=== PATIENT | female | born 1930 | race Two or more races ===

== ENCOUNTER 2018-03-18 07:54 | Inpatient (IN) | payer OTHER, MEDICAID ==
[~2018-03-18] VITALS: Ht 149.9 cm; Wt 55.8 kg
[2018-03-18] VITALS (7 sets, daily range): BP systolic 92–122; BP diastolic 50–65
[2018-03-18] MEDS ORDERED: IV NS 0.9% 1,000 ML BAG IV ONE (08:00)
--- NOTE | 2018-03-18 08:07 | NUR ---
PT MAMADOU FROM HOME TO ER BED 08. PER REPORT SYNCOPAL EPISODE WHILE BEING TRANSFERED FROM BED TO THE WHEELCHAIR. HYPOTENSIVE PER EMS ARRIVAL. GOWNED AND PLACED ON MONITOR. AWAITING MD DAVILA.
--- NOTE | 2018-03-18 08:15 | NUR ---
DR LOUISE AT BEDSIDE FOR EVAL.
[2018-03-18 08:34] LABS: BASOPHILS % (AUTO) 0.3 % (0.0-2.0); HEMATOCRIT 25 % (33-45); HEMOGLOBIN 8.5 g/dL (11.5-14.8); LYMPHOCYTES # (AUTO) 0.7 /CMM (0.8-4.8); LYMPHOCYTES % (AUTO) 6.9 % (20.0-44.0); MEAN CORPUSCULAR HGB CONC 34 g/dl (31.0-36.0); MEAN CORPUSCULAR VOLUME 87 fL (82-100); MONOCYTES # (AUTO) 0.6 /CMM (0.1-1.30); MONOCYTES % (AUTO) 5.9 % (2.0-12.0); NEUTROPHILS # (AUTO) 8.4 /CMM (1.8-8.9); NEUTROPHILS % (AUTO) 86.9 % (43.0-81.0); PLATELET COUNT (AUTO) 307 /CMM (150-450); RED BLOOD CELL COUNT(AUTO) 2.89 MIL/uL (4.0-5.2); WHITE BLOOD COUNT (AUTO) 9.6 K/uL (4.3-11.0)
[2018-03-18] MEDS ORDERED: ATOR10TA PO (08:37)
[2018-03-18] MEDS ORDERED: RIVA10TA PO (08:37)
[2018-03-18] MEDS ORDERED: DILT120C87 PO (08:37)
[2018-03-18] MEDS ORDERED: POLY17PO4 PO (08:37)
[2018-03-18] MEDS ORDERED: MULT-1200 PO (08:37)
[2018-03-18] MEDS ORDERED: MULT-479 PO (08:37)
[2018-03-18] MEDS ORDERED: ESCI5TAB PO (08:37)
[2018-03-18] MEDS ORDERED: DOCU-141 PO (08:37)
[2018-03-18 08:41] LABS: OCCULT BLOOD STOOL POSITIVE (NEGATIVE)
[2018-03-18 08:58] LABS: ALANINE AMINOTRANSFERASE 20 U/L (12-78); ALBUMIN 2.2 g/dL (3.4-5.0); ALKALINE PHOSPHATASE 54 U/L (46-116); ASPARTATE AMINOTRANSFERASE 22 U/L (15-37); BILIRUBIN,DIRECT 0.1 mg/dL (0.0-0.2); BILIRUBIN,TOTAL 0.4 mg/dL (0.2-1.0); CALCIUM, SERUM 8.9 mg/dL (8.5-10.1); CARBON DIOXIDE 31 mmol/L (21-32); CHLORIDE 106 mmol/L (98-107); CREATININE 0.8 mg/dL (0.6-1.3); GLUCOSE 183 mg/dL (74-106); POTASSIUM 3.1 mmol/L (3.5-5.1); SODIUM SERUM 144 mmol/L (136-145); TOTAL PROTEIN, SERUM 5.1 g/dL (6.4-8.2); UREA NITROGEN, BLOOD 19 mg/dL (7-18)
--- NOTE | 2018-03-18 09:30 | NUR ---
PT ASLEEP BUT EASILY AWAKEN BY VERBAL STIMULI. PT AAOX3, VSS. DENIES CP, SOB, DIZZINESS, N/V/D @ THIS TIME. WILL CONT TO MONITOR & SON @ BS.
--- NOTE | 2018-03-18 09:48 | NUR ---
PAGED [facility] --- SHAFTING CLEANER IS DR BAEZA.
--- NOTE | 2018-03-18 10:12 | NUR ---
REPORT GIVEN TO AUGIE GREEN @ [facility] FOR CONT OF CARE.
--- NOTE | 2018-03-18 10:30 | NUR ---
[facility] REDUCTION FURNACE OPERATOR NOTES RECEIVED PT VIA MARY FROM ER TO ROOM 115-1.ALERT/ORIENTED X3 WITH H/O DEMENTIA.ON TELE HR IS 68-69 WITH SR.ON ROOM AIR,TOLERATING WELL.NO SOB AND ACUTE DISTRESS NOTED.IV LINE IS ON RIGHT FA G20,SITE SI CLEAN,DRY AND INTACT.NO INFILTRATION NOTED.SKIN ASSESSMENT IS DONE AND PHOTOS HAS TAKEN.PT IS ON NPO FRO NOW FOR UPCOMING PROCEDURE.VITAL SIGNS CHECKED AND RECORDED.SAFETY IS MAINTAINED AT ALL TIMES.BED IS IN LOW POSITION AND LOCKED.CALL LIGHT IS WITHIN REACH.WILL CONTINUE TO MONITOR THE PT CLOSELY.
[2018-03-18] MEDS ORDERED: ACETAMINOPHEN 325 MG TABLET PO PRN (11:30)
[2018-03-18] MEDS ORDERED: MAG HYDROX/AL HYDROX/SIMETH 30 ML UDC PO PRN (11:30)
[2018-03-18] MEDS ORDERED: POTASSIUM CHLORIDE 20 MEQ TAB.PRT.SR PO ONE (11:30)
[2018-03-18] MEDS ORDERED: MAGNESIUM HYDROXIDE 30 ML UDC PO PRN (11:30)
[2018-03-18] MEDS ORDERED: ONDANSETRON HCL/PF 4 MG/2 ML VIAL IVP PRN (11:30)
[2018-03-18] MEDS ORDERED: ZOLPIDEM TARTRATE 5 MG TABLET PO PRN (11:30)
[2018-03-18] MEDS ORDERED: HYDROCODONE/APAP 5/325MG 1 EACH TABLET PO PRN (11:30)
[2018-03-18] MEDS ORDERED: Z GUARD REMEDY 2 OZ OINT TP PRN (11:30)
[2018-03-18] MEDS: IV D5W 1,000 ML IV PRN (12:11)
[2018-03-18] MEDS: PANTOPRAZOLE 40 MG VIAL IV SCH (12:13)
--- NOTE | 2018-03-18 13:30 | NUR ---
[facility]O RN NOTES ,GI CAME AND ASSESSED THE PT AND ORDERED D/C NPO NOW AND START NPO FROM MIDNIGHT ONWARDS EXCEPT MEDS,PLANNING TO DO COLONOSCOPY AND EGD TOMORROW TO R/O GI BLEEDING.FAMILY AT BEDSIDE AND PT MADE AWARE.DR.SANTA PEÑA MADE AWARE AND SAID OK.ORDERED CARDIAC DIET WITHOUT RED COLOR FOODS.NEW ORDERS NOTED AND CARRIED OUT.
[2018-03-18 14:57] LABS: BASOPHILS % (AUTO) 0.2 % (0.0-2.0); HEMATOCRIT 23 % (33-45); HEMOGLOBIN 7.7 g/dL (11.5-14.8); LYMPHOCYTES # (AUTO) 1.5 /CMM (0.8-4.8); LYMPHOCYTES % (AUTO) 12.8 % (20.0-44.0); MEAN CORPUSCULAR HGB CONC 34 g/dl (31.0-36.0); MEAN CORPUSCULAR VOLUME 86 fL (82-100); MONOCYTES # (AUTO) 0.8 /CMM (0.1-1.30); NEUTROPHILS # (AUTO) 9.5 /CMM (1.8-8.9); PLATELET COUNT (AUTO) 329 /CMM (150-450); RED BLOOD CELL COUNT(AUTO) 2.67 MIL/uL (4.0-5.2); WHITE BLOOD COUNT (AUTO) 11.8 K/uL (4.3-11.0)
[2018-03-18] MEDS ORDERED: PEG 3350/NA SULF,BICARB,CL/KCL 4,000 ML BOTTLE PO ONE (16:00)
--- NOTE | 2018-03-18 16:45 | NUR ---
LEONARDO RN NOTES DR.SANTA PEÑA ORDERED TO TRANSFUSE 1 UNIT OF PRBC NOW AND IF HGB<8,TRANSFUSE FURTHER.PT AND FAMILY MADE AWARE.NEW ORDERS NOTED AND CARRIED OUT.
[2018-03-18] MEDS: HYDROCORTISONE CR 30 GM TUBE RC SCH (17:58)
--- NOTE | 2018-03-18 19:00 | NUR ---
LEONARDO RN CLOSING NOTES PT IS ON BED.ALERT/ORIENTED X3 WITH SOME EPISODES OF CONFUSION.RESPIRATION IS UNEVEN AND NORMAL.IV FLUID IS STILL RUNNING.CONTINUE WITH GOLYTELY.FAMILY IS AT BEDISDE.ENDORSED TO NEXT SHIFT RN FOR COLLECTING URINE SAMPLE AND REGARDING BLOOD TRANSFUSIONS AND TOMORROWS PROCEDURE.
[2018-03-18 20:42] LABS: HEMOGLOBIN 6.1 g/dL (11.5-14.8)
--- NOTE | 2018-03-18 20:56 | NUR ---
0 Received patient awake,alert,converses,coherent most of the time and appropriate,follws commands ,understands well.not in any distress. for PRBC transfusion tonight 1 unit.No active bleeding noted. 2039 PRBC available,about to transfuse but witnessing RN poke the tubing deep that the bag is leaking,called blood bank ,will need to return PRBC product and will need a new bag. also lab called HGB now is 6.1
[2018-03-18] MEDS: POLYETHYLENE GLYCOL 3350 17 GM POWD.PACK PO SCH (21:41)
--- NOTE | 2018-03-18 22:09 | NUR ---
2200 PRBC transfusion started.
--- NOTE | 2018-03-18 22:20 | NUR ---
HGB= 6.1 relayed to Shayla COLIN,also refered about the right chest induration,slightly elevated than the left chest and patient c/o pain on movement and ROM of right arm is limited due to pain.also made her aware patient hardly able to drink th e Golytely for bowel prep.
[2018-03-19] VITALS (10 sets, daily range): BP systolic 107–159; BP diastolic 57–90
--- NOTE | 2018-03-19 01:00 | NUR ---
PRBC transfusion over,tolerated transfusion well,no transfusion reaction noted.
--- NOTE | 2018-03-19 01:00 | NUR ---
Shayla Smith SAILOR in to see patient,examined patient's right chest(thinks its a lump not a bone fracture) states theres nothing we can do for now,will probably need some consult ( maybe oncology consult). Attempted to insert NGt or OGT to administer bowel prep since patient not tolerating too much at a time but patient uncooperative ,unsuccesful after multiple attempts..Will patiently give bowel prep orally whatever patient will be able to tolerate.
[2018-03-19] MEDS: IV D5W 1,000 ML IV PRN (01:46)
[2018-03-19 02:28] LABS: BASOPHILS # (AUTO) 0.1 /CMM (0.0-0.2); EOSINOPHILS % (AUTO) 0.1 % (0.0-6.0); HEMATOCRIT 27 % (33-45); HEMOGLOBIN 9.3 g/dL (11.5-14.8); LYMPHOCYTES # (AUTO) 1.7 /CMM (0.8-4.8); LYMPHOCYTES % (AUTO) 13.3 % (20.0-44.0); MEAN CORPUSCULAR HGB CONC 34 g/dl (31.0-36.0); MEAN CORPUSCULAR VOLUME 86 fL (82-100); MONOCYTES % (AUTO) 7.9 % (2.0-12.0); NEUTROPHILS # (AUTO) 10.1 /CMM (1.8-8.9); NEUTROPHILS % (AUTO) 77.7 % (43.0-81.0); PLATELET COUNT (AUTO) 293 /CMM (150-450); RED BLOOD CELL COUNT(AUTO) 3.19 MIL/uL (4.0-5.2)
--- NOTE | 2018-03-19 03:00 | NUR ---
Patient finished almost retirement( approx 3 gallons),of the bowel prep..Reamins s=atb le .no bleeding noted repeat HGB post transfusion is 9.1 Addendum: 03/19/18 at 0652 by OKSANA TRISTAN RN correction for above amount 3 liters instead of 3 gallons
--- NOTE | 2018-03-19 06:00 | NUR ---
Patient has had no bowel movement despite bowel prep (consumed about 3 liters),also has no urine.Bladder scan done,abpout 600 ML. noted.Called RESEARCH QUALITY ASSURANCE ANALYST christopher Mcguire to insert liz cath. 0615 Liz inserted aseptically ,obtained about 600 ml yellow urine with sediments.
[2018-03-19 06:43] LABS: APPEARANCE,URINE SL CLOUDY (CLEAR); BILIRUBIN,URINE NEGATIVE (NEGATIVE); BLOOD, URINE NEGATIVE Ery/uL (NEGATIVE); COLOR,URINE DARK YELLO (YELLOW); KETONES,URINE NEGATIVE (NEGATIVE); LEUKOCYTE ESTERASE ,URINE TRACE (NEGATIVE); NITRITE, URINE NEGATIVE (NEGATIVE); PROTEIN,URINE TRACE mg/dl (NEGATIVE); UGLUCOSE NEGATIVE (NEGATIVE)
[2018-03-19 06:56] LABS: CALCIUM, SERUM 8.5 mg/dL (8.5-10.1); CARBON DIOXIDE 26 mmol/L (21-32); CHLORIDE 100 mmol/L (98-107); CREATININE 1.1 mg/dL (0.6-1.3); GLUCOSE 182 mg/dL (74-106); MAGNESIUM 1.8 mg/dL (1.8-2.4); POTASSIUM 3.1 mmol/L (3.5-5.1); SODIUM SERUM 138 mmol/L (136-145); UREA NITROGEN, BLOOD 25 mg/dL (7-18)
--- NOTE | 2018-03-19 07:00 | NUR ---
REmains stable,no bleeding noted ,but still no BM despite bowel prep.Maintain NPO for possible EGD and Colonoscopy today.Follow u with MD about the right upper chest bump/lump?.Report given to Jaylen GHOSH
[2018-03-19 07:03] LABS: BASOPHILS % (AUTO) 0.1 % (0.0-2.0); HEMATOCRIT 25 % (33-45); HEMOGLOBIN 8.8 g/dL (11.5-14.8); LYMPHOCYTES # (AUTO) 0.5 /CMM (0.8-4.8); LYMPHOCYTES % (AUTO) 4.4 % (20.0-44.0); MEAN CORPUSCULAR HGB CONC 35 g/dl (31.0-36.0); MEAN CORPUSCULAR VOLUME 85 fL (82-100); MONOCYTES # (AUTO) 0.7 /CMM (0.1-1.30); MONOCYTES % (AUTO) 5.5 % (2.0-12.0); NEUTROPHILS # (AUTO) 11.2 /CMM (1.8-8.9); PLATELET COUNT (AUTO) 292 /CMM (150-450); RED BLOOD CELL COUNT(AUTO) 2.99 MIL/uL (4.0-5.2); WHITE BLOOD COUNT (AUTO) 12.4 K/uL (4.3-11.0)
[2018-03-19 07:29] LABS: CHOLESTEROL 109 mg/dL (<200); HDL CHOLESTEROL 61 mg/dL (40-60); LDL 38 mg/dL (0-99); TRIGLYCERIDES 84 mg/dL (30-150)
--- NOTE | 2018-03-19 07:55 | NUR ---
RN LEONARDO: pt.is awake/Ox1, dementia history, no any pain c/o, can follow commands, O2sat. WNL, SR now on monitor, SBP over 100, H/H 8.8/25, no melena now, K+ 3.1/will s/w MD/pharmacy, NPO, got Golytely 3LPO, but no BM, waiting EGDS, colonoscopy, pt.has R.upper frontal soft tissue edema/deformation, will speak w/MD, pt.son is in room, updated with pt.condition, VS, POC
[2018-03-19 08:20] LABS: BACTERIA,URINE Many /HPF (None Seen); RBC,URINE 0-2 /HPF (0-2); SQUAMOUS EPITHELIAL CELL,UR Few /HPF (None Seen)
[2018-03-19 08:21] LABS: HYALINE CASTS, URINE Rare /LPF (None Seen)
[2018-03-19] MEDS: PANTOPRAZOLE 40 MG VIAL IV SCH (09:02)
[2018-03-19] MEDS: HYDROCORTISONE CR 30 GM TUBE RC SCH ×2 (09:03→16:28)
--- NOTE | 2018-03-19 09:20 | NUR ---
RN LEONARDO: updated with pt.condition, VS, K+3.1, spoke with pt.son, see new orders
[2018-03-19] MEDS: IV NS 0.9% 1,000 ML IV PRN (09:59)
[2018-03-19] MEDS: POTASSIUM CL. PREMIX PERIPHER. 50 ML IV SCH ×4 (09:59→15:50)
--- NOTE | 2018-03-19 10:15 | NUR ---
RN LEONARDO: is in room, updated with pt.current condition, VS, NPO, no BM, urine output, IVF, pt.is waiting EGD/colonoscopy?, H/H, labs, orders, R.front chest mass, spoke with pt.son, ordered US to evaluate chest mass, see new orders
--- NOTE | 2018-03-19 12:15 | NUR ---
RN LEONARDO: spoke with /updated with pt.current condition, no BM after Golytly, VS, NPO, H/H, meds, labs, spoke with pt.son, confirmed: pt.is going for EGD, ordered: Duclolax supp.
[2018-03-19] MEDS ORDERED: BISACODYL SUPP (10 MG) 10 MG/SUPP.RECT SUPP.RECT RC STA (12:39)
--- NOTE | 2018-03-19 13:10 | NUR ---
AWNINGS MECHANIC: pt.is transferred to OR
[2018-03-19] MEDS ORDERED: ETOMIDATE 2 MG/ML VIAL ONE (14:05)
--- NOTE | 2018-03-19 15:06 | NUR ---
Met with son Bob who is the primary caregiver. Patient was recently [facility] . She currently lives locally with son Bob in the second floor apartment with elevator access. According to son, patient was ambulating with a walker while at the SNF but was weak and not walking when she got home. Has adequate DME: hosp bed, air mattress, wheelchair, walker, commode, grab bars and shower chair. She is on service with [facility] [phone]. Her pcp is Dr. Shayla Vela. Emanuel is requesting SNF placement to [facility] when discharge. Addendum: 03/19/18 at 1643 by KATELYN BATES RN Amended: Links added.
--- NOTE | 2018-03-19 15:20 | NUR ---
RN LEONARDO: got pt. from OR, awake, Ox2, no c/o, no pain, VSS, ordered: start diet and advance, resume all orders, by note before: clear liquid diet, pt.is able to swallow ice chips well, family is at bedsite, by OR nurse report: nothing special for now after EGD, colonoscopy resulted: hemorrhoid without bleeding, diverticulosis
[2018-03-19] MEDS: SUCRALFATE 1 G/10 ML UDC GT SCH ×3 (15:50→21:15)
--- NOTE | 2018-03-19 17:40 | NUR ---
RN LEONARDO: pt.is A/Ox2, weak, can follow commands, no any pain, SR, BP WNL, O2sat. over 94%, had BM/no blood in stool, all PM/skin care done, R.forearm edema is down, using L.f/a PIVL, low urine output/will notify next nurse, pt.son is at bedsite, R.upper frontal chest US is done/ no any emergency state now by US extractions technician, pt.is updated with POC, will start clear liquid diet with aspiration precaution and advance, DT consult order is in PC
--- NOTE | 2018-03-19 20:00 | NUR ---
CIVIL PROJECT ENGINEER INITIAL NOTE PT RECEIVED IN BED, HOB ELEVATED, AOX2 ON R/A WELL JACQUE' DENIES ANY PAIN, CLEAN AND DRY, WELL REPOSITIONED, DOWN GRADED TO TELE, NSR 86, S/P COLONOSCOPY, VS STABLE, NO COMPLICATIONS NOTED, CLEAR LIQ' DIET RESUMED, ABLE TO SWALLOW, S/P EGD, CONT' ON NS@125ML/HR, AM RN REPORTED NOTING RT, CHEST SOFT TISSUE EDEMA, US DONE, RESULTS PENDING, WILL F/U. ALL SAFETY MEASURES IN PLACE.
[2018-03-19] MEDS: POLYETHYLENE GLYCOL 3350 17 GM POWD.PACK PO SCH (21:15)
[2018-03-20] VITALS (21 sets, daily range): BP systolic 102–131; BP diastolic 50–71
[2018-03-20] MEDS: IV NS 0.9% 1,000 ML IV PRN ×2 (04:32→14:39)
--- NOTE | 2018-03-20 06:47 | NUR ---
COTTON SEED CULLER CLOSING NOTE PT ENDORSED IN BED, HOB ELEVATED, AOX2 ON R/A WELL JACQUE' DENIES ANY PAIN, CLEAN AND DRY, WELL REPOSITIONED, DOWN GRADED TO TELE, NSR 80'S, S/P COLONOSCOPY, VS STABLE, NO COMPLICATIONS NOTED, CLEAR LIQ' DIET RESUMED, ABLE TO SWALLOW, S/P EGD, CONT' ON NS@125ML/HR, AM RN REPORTED NOTING RT, CHEST SOFT TISSUE EDEMA, US DONE, RESULTS PENDING, WILL F/U. ALL SAFETY MEASURES IN PLACE.
--- NOTE | 2018-03-20 07:30 | NUR ---
SUPERVISOR BROADLOOM OPENING NOTE PT RECEIVED IN BED, HOB ELEVATED, AOX2 ON R/A .DENIES ANY PAIN. ON TELE MONITOR NSR 83, S/P COLONOSCOPY, S/P EGD, CONT' ON NS@125ML/HR, RT CHEST SOFT TISSUE EDEMA, US DONE, RESULTS STILL PENDING, WILL F/U. ALL SAFETY MEASURES IN PLACE.BED IS LOW AND IN LOCKED POSITION,CALL LIGHT IN REACH,SRX3.WILL CONTINUE TO MONITOR.
[2018-03-20 07:39] LABS: EOSINOPHILS % (AUTO) 0.1 % (0.0-6.0); HEMATOCRIT 21 % (33-45); HEMOGLOBIN 7.1 g/dL (11.5-14.8); LYMPHOCYTES # (AUTO) 1.1 /CMM (0.8-4.8); LYMPHOCYTES % (AUTO) 8.3 % (20.0-44.0); MEAN CORPUSCULAR HGB CONC 34 g/dl (31.0-36.0); MEAN CORPUSCULAR VOLUME 86 fL (82-100); MONOCYTES # (AUTO) 0.5 /CMM (0.1-1.30); NEUTROPHILS # (AUTO) 11.4 /CMM (1.8-8.9); NEUTROPHILS % (AUTO) 87.6 % (43.0-81.0); PLATELET COUNT (AUTO) 257 /CMM (150-450); RED BLOOD CELL COUNT(AUTO) 2.41 MIL/uL (4.0-5.2); WHITE BLOOD COUNT (AUTO) 13.1 K/uL (4.3-11.0)
[2018-03-20] MEDS: SUCRALFATE 1 G/10 ML UDC GT SCH ×4 (07:56→21:25)
[2018-03-20 08:07] LABS: ALANINE AMINOTRANSFERASE 21 U/L (12-78); ALBUMIN 1.8 g/dL (3.4-5.0); ALKALINE PHOSPHATASE 62 U/L (46-116); ASPARTATE AMINOTRANSFERASE 23 U/L (15-37); BILIRUBIN,TOTAL 0.6 mg/dL (0.2-1.0); CALCIUM, SERUM 8.2 mg/dL (8.5-10.1); CARBON DIOXIDE 27 mmol/L (21-32); CHLORIDE 106 mmol/L (98-107); CREATININE 0.7 mg/dL (0.6-1.3); GLUCOSE 104 mg/dL (74-106); MAGNESIUM 1.8 mg/dL (1.8-2.4); PHOSPHORUS 2.6 mg/dL (2.5-4.9); POTASSIUM 3.4 mmol/L (3.5-5.1); SODIUM SERUM 139 mmol/L (136-145); TOTAL PROTEIN, SERUM 4.3 g/dL (6.4-8.2); UREA NITROGEN, BLOOD 20 mg/dL (7-18)
[2018-03-20] MEDS: PANTOPRAZOLE 40 MG VIAL IV SCH (09:26)
[2018-03-20] MEDS: HYDROCORTISONE CR 30 GM TUBE RC SCH ×2 (09:27→17:09)
[2018-03-20 09:37] LABS: IRON, SERUM 13 ug/dl (50-175); TOTAL IRON BINDING CAPACITY 111 ug/dl (250-450)
[2018-03-20 09:51] LABS: FERRITIN 223 ng/mL (8-388)
--- NOTE | 2018-03-20 10:00 | NUR ---
MS RN NOTE SEEN BY ,GOT NEW ORDERS FOR PRBC ,F/U LAB,POTASSIUM.WILL CONTINUE TO MONITOR.
[2018-03-20] MEDS: POTASSIUM CHLORIDE 20 MEQ TAB.PRT.SR PO SCH ×2 (10:53→12:17)
[2018-03-20] MEDS ORDERED: IRON PO SCH (13:00)
[2018-03-20] MEDS ORDERED: [UNRECOGNIZED DRUG - OTHER] PO SCH (13:00)
[2018-03-20] MEDS ORDERED: MULTIVITAMIN PO SCH (13:00)
[2018-03-20] MEDS ORDERED: FOLIC ACID PO SCH (13:00)
--- NOTE | 2018-03-20 13:20 | NUR ---
MS RN NOTE SEEN BY ,UPDATED ABOUT PATIENT CONDITION WITH LABS AND NOTIFIED ULTRASOUND RESULT STILL PENDING.WILL CONTINUE TO MONITOR.
[2018-03-20] MEDS: ATORVASTATIN 10 MG TABLET PO SCH (13:23)
[2018-03-20] MEDS: MULTIVITAMIN/LUTEIN/MINERALS 1 TAB PO SCH (13:23)
[2018-03-20] MEDS: METRONIDAZOLE 500MG/ NS 100ML 500 MG in PREMIX 1 EA IV SCH ×2 (14:51→21:25)
--- NOTE | 2018-03-20 15:00 | NUR ---
MS RN NOTE SEEN BY UPDATED ABOUT PATIENT CONDITION,ASKED TO CONTINUE TO MONITOR,MAY NEED REPEAT COLONOSCOPY IF SYMPTOMS STILL PERSIST.
[2018-03-20] MEDS: SOD FERRIC GLUC 125 MG in IV NS 0.9% 100 ML IV SCH (16:11)
[2018-03-20] MEDS: CIPROFLOXACIN IV RTU 400 MG in PREMIX 1 EA IV SCH (17:16)
[2018-03-20] MEDS: DILTIAZEM HCL CD 120 MG PO SCH (17:18)
--- NOTE | 2018-03-20 17:30 | NUR ---
RN NOTES CARDIZEM GIVEN LATE BECAUSE PATIENT REFUSED DURING BLOOD TRANS FUSION.
--- NOTE | 2018-03-20 17:40 | NUR ---
MS RN NOTES RELAYED RESULT OF US TO ,ALSO NOTIFIED THAT PATIENT R BREAST IS MORE HARDER AND DISCOLORED.GOT NEW ORDER FOR CT CHEST WITH CONTRAST AND CT ABDOMEN WITH PELVIS PER FAMILY REQUEST.WILL CONTINUE TO MONITOR.
--- NOTE | 2018-03-20 17:44 | NUR ---
MS RN NOTES CONSENT SIGNED BY THE SON VIANEY .PATIENT UNABLE TO SIGN.
[2018-03-20] MEDS ORDERED: IOHEXOL-300 100 ML VIAL IV ONE (17:47)
[2018-03-20] MEDS ORDERED: CT SWABBABLE VALVE TRANS SET 1 EA INFUS.SET MC ONE (17:48)
[2018-03-20] MEDS ORDERED: IV NS 0.9% 250 ML IV ONE (17:48)
--- NOTE | 2018-03-20 19:01 | NUR ---
RN NOTES PATIENT ENDORSED TO NEXT SHIFT IN STABLE CONDITION FOR CONTINUITY OF CARE. NO SIGNIFICANT CHANGES NOTED. KEPT CLEAN, DRY AND COMFORTABLE. ALL NEEDS ATTENDED. SAFETY MEASURE OBSERVED. CALL LIGHT WITH IN REACH. WILL CONT TO MONITOR.
--- NOTE | 2018-03-20 19:15 | NUR ---
MS RN NOTES RECEIVE PT IN BED A/O X 2, NO PAIN AT THIS TIME. IN STABLE CONDITION, NOT IN DISTRESS, SAFETY MEASURES IN PLACE. WILL CONTINUE TO MONITOR.
[2018-03-20] MEDS: POLYETHYLENE GLYCOL 3350 17 GM POWD.PACK PO SCH (21:25)
[2018-03-21] VITALS (13 sets, daily range): BP systolic 106–145; BP diastolic 47–87
[2018-03-21] MEDS: IV NS 0.9% 1,000 ML IV PRN (00:50)
[2018-03-21] MEDS: CIPROFLOXACIN IV RTU 400 MG in PREMIX 1 EA IV SCH ×2 (02:00→17:29)
[2018-03-21] MEDS: METRONIDAZOLE 500MG/ NS 100ML 500 MG in PREMIX 1 EA IV SCH ×2 (05:21→20:35)
--- NOTE | 2018-03-21 06:15 | NUR ---
MS RN CLOSING NOTES REMAINS STABLE. TOLERATING ROOM AIR 98%. ALL NURSING CARE RENDERED. KEPT CLEAN AND DRY AND COMFORTABLE, NEEDS ATTENDED AND ANTICIPATED. GOOD SKIN CARE PROVIDED, REPOSITIONED EVERY 2 HOURS. ON LOW BED AT ALL TIMES TO ENSURE SAFETY. SAFE HAZARD FREE ENVIRONMENT PROVIDED. CALL LIGHT WITHIN EASY TO REACH. WILL ENDORSE NEXT SHIFT CONTINUITY OF CARE
--- NOTE | 2018-03-21 07:00 | NUR ---
MS RN OPENING NOTES RECEIVED PT ON BED.ALERT/ORIENTED X3.ON ROOM AIR,TOLERATING WELL.NO SOB AND ACUTE DISTRESS NOTED.IV LINE IS ON LEFT FA G20,SITE IS CLEAN,DRY AND INTACT.NO INFILTRATION NOTED.LABS ARE(HEMOGLOBIN) IMPROVING.BRUISES PRESENT BUE.SAFETY IS MAINTAINED FELIBERTO ALL TIMES.BED IS IN LOW POSITION AND LOCKED.CALL LIGHT IS WITHIN REACH.CONTINUE TO MONITOR THE PT CLOSELY.
[2018-03-21 07:18] LABS: BASOPHILS % (AUTO) 0.1 % (0.0-2.0); EOSINOPHILS % (AUTO) 0.6 % (0.0-6.0); HEMATOCRIT 24 % (33-45); HEMOGLOBIN 7.9 g/dL (11.5-14.8); LYMPHOCYTES # (AUTO) 0.8 /CMM (0.8-4.8); LYMPHOCYTES % (AUTO) 10.8 % (20.0-44.0); MEAN CORPUSCULAR HGB CONC 34 g/dl (31.0-36.0); MEAN CORPUSCULAR VOLUME 86 fL (82-100); MONOCYTES # (AUTO) 0.5 /CMM (0.1-1.30); MONOCYTES % (AUTO) 7.6 % (2.0-12.0); NEUTROPHILS # (AUTO) 5.7 /CMM (1.8-8.9); NEUTROPHILS % (AUTO) 80.9 % (43.0-81.0); PLATELET COUNT (AUTO) 273 /CMM (150-450); RED BLOOD CELL COUNT(AUTO) 2.72 MIL/uL (4.0-5.2); WHITE BLOOD COUNT (AUTO) 7.1 K/uL (4.3-11.0)
[2018-03-21 07:32] LABS: ALANINE AMINOTRANSFERASE 18 U/L (12-78); ALBUMIN 1.6 g/dL (3.4-5.0); ALKALINE PHOSPHATASE 62 U/L (46-116); ASPARTATE AMINOTRANSFERASE 23 U/L (15-37); BILIRUBIN,TOTAL 0.6 mg/dL (0.2-1.0); CARBON DIOXIDE 25 mmol/L (21-32); CHLORIDE 108 mmol/L (98-107); CREATININE 0.5 mg/dL (0.6-1.3); GLUCOSE 88 mg/dL (74-106); MAGNESIUM 1.6 mg/dL (1.8-2.4); PHOSPHORUS 2.1 mg/dL (2.5-4.9); POTASSIUM 3.2 mmol/L (3.5-5.1); SODIUM SERUM 140 mmol/L (136-145); TOTAL PROTEIN, SERUM 4.1 g/dL (6.4-8.2); UREA NITROGEN, BLOOD 10 mg/dL (7-18)
[2018-03-21] MEDS: PANTOPRAZOLE 40 MG VIAL IV SCH (08:32)
[2018-03-21] MEDS: SUCRALFATE 1 G/10 ML UDC GT SCH ×4 (08:32→22:45)
[2018-03-21] MEDS: ESCITALOPRAM OXALATE (10 MG) 10 MG TABLET PO SCH (08:33)
[2018-03-21] MEDS: MULTIVITAMIN/LUTEIN/MINERALS 1 TAB PO SCH (08:33)
[2018-03-21] MEDS: ATORVASTATIN 10 MG TABLET PO SCH (08:33)
[2018-03-21] MEDS: DILTIAZEM HCL CD 120 MG PO SCH (09:00)
[2018-03-21] MEDS: HYDROCORTISONE CR 30 GM TUBE RC SCH ×2 (09:57→17:38)
[2018-03-21] MEDS: POTASSIUM CHLORIDE 20 MEQ TAB.PRT.SR PO SCH ×2 (10:24→11:42)
[2018-03-21] MEDS: Magnesium 1GM/D5W 100ML PREMIX 100 ML IV SCH ×2 (10:24→11:42)
[2018-03-21] MEDS: NEUTRA PHOS 1 POWD.PACKET PO SCH ×2 (11:07→17:37)
[2018-03-21] MEDS ORDERED: PANT40TA2 PO (12:24)
[2018-03-21] MEDS ORDERED: LEVO500T90 PO (12:24)
[2018-03-21] MEDS ORDERED: HYDR30CR79 RC (12:24)
[2018-03-21] MEDS ORDERED: SUCR1ORA6 GT (12:24)
[2018-03-21] MEDS ORDERED: FERR325T23 PO (12:24)
[2018-03-21] MEDS ORDERED: NA PHOS,M-B/NA PHOS,DI-BA 1 EA ENEMA RC PRN (12:30)
--- NOTE | 2018-03-21 13:00 | NUR ---
MS GHOSH NOTES BLOOD TRANSFUSION IS STARTED.HGB IS 7.9.VITAL SIGNS ARE CHECKED AND RECORDED,IT IS STABLE.NO COMPLICATIONS NOTED. Addendum: 03/21/18 at 1531 by KIM BRITO RN @1300 BLOOD TRANSFUSIONS STARTED @60ML/HR.
--- NOTE | 2018-03-21 13:50 | NUR ---
MS RN NOTES BLOOD IS STILL TRANSFUSING NOW.VITALS ARE CHECKED AND IT IS STABLE.INCREASE RATE FROM 60ML-80ML/HR.NO COMPLICATIONS NOTED.
--- NOTE | 2018-03-21 14:00 | NUR ---
MS RN NOTES BLOOD IS STILL TRANSFUSING.IV MEDICATIONS ARE ON HOLD DUE FOR 1400.AWAITING FOR THE BLOOD TRANSFUSIONS HAS DONE.
--- NOTE | 2018-03-21 16:15 | NUR ---
MS RN NOTES PT NOTED WITH SWELLING ON LEFT FOREARM IV SITE,DISCONTINUE THE IV.STOP THE BLOOD TRANSFUSION AND REPLACED TO MIDLINE INSERTION G20 ON LEFT UPPER ARM.SITE IS CLEAN,DRY AND INTACT.
--- NOTE | 2018-03-21 16:43 | NUR ---
PATIENT RIGHT HAND AND R FOREARM C/O SWELLING,NOT WARM TO TOUCH,MD MADE AWARE AND HOLD DISCHARGE.WILL DO DOPPLER TO R/O DVT. EMMANUEL BERNARD NOTIFIED ,FAMILY AT BEDSIDE MADE AWARE OF PLAN OF CARE.WILL REPEAT CBC/BMP IN AM.
[2018-03-21 18:38] LABS: HEMATOCRIT 27 % (33-45); MEAN CORPUSCULAR HGB CONC 34 g/dl (31.0-36.0); MEAN CORPUSCULAR VOLUME 87 fL (82-100); PLATELET COUNT (AUTO) 310 /CMM (150-450); RED BLOOD CELL COUNT(AUTO) 3.07 MIL/uL (4.0-5.2); WHITE BLOOD COUNT (AUTO) 7.6 K/uL (4.3-11.0)
[2018-03-21] MEDS: SOD FERRIC GLUC 125 MG in IV NS 0.9% 100 ML IV SCH (18:41)
--- NOTE | 2018-03-21 19:03 | NUR ---
MS RN CLOSING NOTES PT IS ON BED.HGB IS IMPROVING.NO SOB AND ACUTE DISTRESS NOTED.ENDORSED TO RETIREMENT VILLAGE MANAGER RN FOR CONTINUITY OF CARE.
--- NOTE | 2018-03-21 19:15 | NUR ---
MS RN NOTES ENDORSED TO RN, ABOUT TO OBTAIN CONSENT FOR CT GUIDED BIOPSY FOR BREAST/CHEST MASS AND NPO MIDNIGHT.
--- NOTE | 2018-03-21 20:00 | NUR ---
RN NOTES OBTAINED/WITNESSED CONSENT FROM SON REGARDING "CT GUIDED BIOPSY OF CHEST" AND ANESTHESIA.
--- NOTE | 2018-03-21 20:30 | NUR ---
RN NOTES. ADMINISTERED FLAGYL 500MG IV AT 20:35 DUE TO PATIENT AM SHIFT MISSED DOSE AT 14:00 TODAY. WILL ADJUST TIME BASED ON Q8 HOUR FREQUENCY
--- NOTE | 2018-03-21 21:34 | NUR ---
RN NOTES NEXT DOSE OF FLAGYL 500MG Q8 TO BE GIVEN AT 03/22 04:00 PER PHARMACY
[2018-03-21] MEDS: POLYETHYLENE GLYCOL 3350 17 GM POWD.PACK PO SCH (22:45)
[2018-03-22] MEDS: CIPROFLOXACIN IV RTU 400 MG in PREMIX 1 EA IV SCH ×2 (02:06→16:37)
[2018-03-22] MEDS: METRONIDAZOLE 500MG/ NS 100ML 500 MG in PREMIX 1 EA IV SCH ×3 (03:22→20:18)
[2018-03-22 04:00] VITALS: BP 147/66
[2018-03-22 07:29] LABS: BASOPHILS % (AUTO) 0.2 % (0.0-2.0); EOSINOPHILS % (AUTO) 1.2 % (0.0-6.0); HEMATOCRIT 28 % (33-45); HEMOGLOBIN 9.6 g/dL (11.5-14.8); LYMPHOCYTES # (AUTO) 1.1 /CMM (0.8-4.8); LYMPHOCYTES % (AUTO) 12.9 % (20.0-44.0); MEAN CORPUSCULAR HGB CONC 34 g/dl (31.0-36.0); MEAN CORPUSCULAR VOLUME 87 fL (82-100); MONOCYTES # (AUTO) 0.6 /CMM (0.1-1.30); MONOCYTES % (AUTO) 7.1 % (2.0-12.0); NEUTROPHILS # (AUTO) 6.5 /CMM (1.8-8.9); NEUTROPHILS % (AUTO) 78.6 % (43.0-81.0); PLATELET COUNT (AUTO) 337 /CMM (150-450); RED BLOOD CELL COUNT(AUTO) 3.26 MIL/uL (4.0-5.2); WHITE BLOOD COUNT (AUTO) 8.3 K/uL (4.3-11.0)
[2018-03-22] MEDS: SUCRALFATE 1 G/10 ML UDC GT SCH ×4 (07:30→21:20)
--- NOTE | 2018-03-22 07:37 | NUR ---
MS RN OPENING NOTES RECEIVED PT FROM NIGHTSHIFT RN IN STABLE CONDITION. PT IS A/O X2. NO SOB OR ACUTE SIGNS OF DISTRESS NOTED. BREATHING IS EVEN AND UNLABORED. PT ON RA AND SATING WELL. SHE DENIES ANY PAIN AT THIS TIME. LEFT UPPER ARM MIDLINE NOTED TO BE PATENT AND INTACT. NO REDNESS OR SIGNS OF INFILTRATION NOTED. CASTORENA CATHETER NOTED TO BE INTACT AND DRAINING TO GRAVITY. PT NPO POST MIDNIGHT FOR SCHEDULED CT GUIDED BIOPSY. CONSENTS COMPLETED BY TUYET RN. BED IN LOW LOCKED POSITION. SIDE RAILS UP X2, CALL LIGHT WITHIN REACH, BED ALARM ON. WILL CONTINUE TO MONITOR
[2018-03-22 07:46] LABS: ALANINE AMINOTRANSFERASE 19 U/L (12-78); ALBUMIN 1.8 g/dL (3.4-5.0); ALKALINE PHOSPHATASE 62 U/L (46-116); ASPARTATE AMINOTRANSFERASE 22 U/L (15-37); BILIRUBIN,TOTAL 0.9 mg/dL (0.2-1.0); CALCIUM, SERUM 8.1 mg/dL (8.5-10.1); CARBON DIOXIDE 26 mmol/L (21-32); CHLORIDE 107 mmol/L (98-107); CREATININE 0.5 mg/dL (0.6-1.3); GLUCOSE 96 mg/dL (74-106); MAGNESIUM 1.9 mg/dL (1.8-2.4); PHOSPHORUS 2.2 mg/dL (2.5-4.9); POTASSIUM 3.3 mmol/L (3.5-5.1); SODIUM SERUM 139 mmol/L (136-145); TOTAL PROTEIN, SERUM 4.5 g/dL (6.4-8.2); UREA NITROGEN, BLOOD 7 mg/dL (7-18)
[2018-03-22 08:00] VITALS: BP 130/62
[2018-03-22] MEDS: PANTOPRAZOLE 40 MG VIAL IV SCH (08:30)
[2018-03-22] MEDS: HYDROCORTISONE CR 30 GM TUBE RC SCH ×2 (08:34→16:02)
[2018-03-22] MEDS: MULTIVITAMIN/LUTEIN/MINERALS 1 TAB PO SCH (09:00)
[2018-03-22] MEDS: DILTIAZEM HCL CD 120 MG PO SCH (09:00)
[2018-03-22] MEDS: ESCITALOPRAM OXALATE (10 MG) 10 MG TABLET PO SCH (09:00)
[2018-03-22] MEDS: NEUTRA PHOS 1 POWD.PACKET PO SCH ×2 (10:00→17:24)
--- NOTE | 2018-03-22 10:20 | NUR ---
MS RN NOTES: CT BIOPSY ORDER FOLLOW UP DR. BAEZA CALLED IN REGARDS TO CT BIOPSY THE ORDER WAS PLACED UNDER A MISCELLANEOUS ORDER AND NOT ONE FOR THE RADIOLOGIST. GAVE TELEPHONE ORDER FOR A STAT CT BIOPSY. RADIOLOGIST WILLIE NOTIFIED
[2018-03-22 16:00] VITALS: BP 128/74
[2018-03-22] MEDS: SOD FERRIC GLUC 125 MG in IV NS 0.9% 100 ML IV SCH (16:01)
[2018-03-22] MEDS: POTASSIUM CHLORIDE 20 MEQ TAB.PRT.SR PO SCH ×2 (16:01→16:11)
--- NOTE | 2018-03-22 16:46 | NUR ---
MS RN NOTES: D/C CASTORENA AND MIDLINE ORDERS DR BAEAZ AT BEDSIDE AND GAVE VERBAL ORDERS TO CONTINUE PT'S MIDLINE AND CASTORENA CATHETER UPON DISCHARGE
--- NOTE | 2018-03-22 18:34 | NUR ---
MS RN CLOSING NOTES PT REMAINS STABLE. ALL NEEDS MET DURING SHIFT AND ORDERS CARRIED OUT ACCORDINGLY. ALL DUE MEDS GIVEN . PRN CARE RENDERED. MIDLINE AND CASTORENA CATHETER REMAIN PATENT AND INTACT. ELECTROLYTES REPLACED DURING SHIFT. EXITCARE MATERIALS COMPLETED AND REVIEWED WITH PT AND HER SON SAFETY MEARES IN PLACE. WILL ENDORSE TO NIGHTSHIFT RN TO COMPLETE DISCHARGE.
--- NOTE | 2018-03-22 19:30 | NUR ---
MS RN OPENING NOTES RECEIVED PT FROM AM RN IN STABLE CONDITION. PT IS A/O X2 WITH PERIODS OF CONFUSION. NO SOB OR ACUTE SIGNS OF DISTRESS NOTED. BREATHING IS EVEN AND UNLABORED. SON AT BED SIDE. PT ON RA AND SATING WELL. SHE DENIES ANY PAIN AT THIS TIME. LEFT UPPER ARM MIDLINE NOTED TO BE PATENT AND INTACT. NO REDNESS OR SIGNS OF INFILTRATION NOTED. CASTORENA CATHETER NOTED TO BE INTACT AND DRAINING TO GRAVITY. PT TO BE DC TO [facility], TO BE PICKED BY AMBULANCE AT 8PM. BED IN LOW LOCKED POSITION. SIDE RAILS UP X2, CALL LIGHT WITHIN REACH, BED ALARM ON. WILL CONTINUE TO MONITOR.
[2018-03-22 20:52] LABS: APPEARANCE,URINE SL CLOUDY (CLEAR); BILIRUBIN,URINE NEGATIVE (NEGATIVE); BLOOD, URINE 1+ Ery/uL (NEGATIVE); COLOR,URINE YELLOW (YELLOW); KETONES,URINE TRACE (NEGATIVE); LEUKOCYTE ESTERASE ,URINE 1+ (NEGATIVE); NITRITE, URINE NEGATIVE (NEGATIVE); PROTEIN,URINE NEGATIVE (NEGATIVE); UGLUCOSE NEGATIVE (NEGATIVE)
[2018-03-22 21:03] LABS: BACTERIA,URINE 1+ /HPF (None Seen); CALCIUM OXALATE CRYSTALS,UR Few /HPF (None Seen); MUCUS,URINE Few /LPF (None Seen); SQUAMOUS EPITHELIAL CELL,UR Few /HPF (None Seen); URINE AMORPHOUS PHOSPHATES Few /HPF (None Seen)
--- NOTE | 2018-03-22 21:45 | NUR ---
DISCHARGE NOTES AMBULUNZ ARRIVED TO GAME ADVISOR THE PATIENT, PT IS INFUSING WITH FLAGYL ORDERED, SON VIANEY WANTED TO FINISH THE IV ABX DOSE, AMBULUNZ EMT'S WAITED FOR ABOUT 40 MINUTES. PT IS A & O X 2. REPORT GIVEN TO EMT'S, VITALS STABLE 124/73, 68, 20, 97.2, 94% AT RA. NO OTHER SYMPTOMS NOTED. ID BAND REMOVED. PT IS LEAVING WITH MIDLINE & CASTORENA IN PLACE PER MD ORDERS. SKIN NOTED WITH SACRAL REDNESS & MULTIPLE BRUISES TO DIFFERENT BODY PARTS, PICTURES IN THE CHART OF 03/12/18. REPORT GIVEN TO AUGIE VINES AT [facility]. ALL DC INSTRUCTIONS & PAPER WORK GIVEN TO SON VIANEY & EMT'S, VERBALIZED UNDERSTANDING. PT WAS ASSISTED WITH ADL CARE, MADE CLEAN & DRY. ALL BELONGINGS ACCOUNTED FOR & SIGNED BY FAST FOOD SHIFT LEAD. SON TOOK ALL BELONGINGS. PT LEFT [facility] IN STABLE CONDITION.
== END 2018-03-22 21:53 | DRG 378 ==
LOC: ER 07:56 → TELE-TD 09:32 → TELE1 03-19 09:39 → MEDSG1 03-20 10:50
PROVIDERS: ADMIT Student in an Organized Health Care Education/Training Program; ATTEND Student in an Organized Health Care Education/Training Program
PROC: 30233N1 Transfusion of Nonautologous Red Blood Cells into Peripheral Vein, Percutaneous Approach (ICD-10-PCS; principal; 2018-03-18)
PROC: 0DJD8ZZ Inspection of Lower Intestinal Tract, Via Natural or Artificial Opening Endoscopic (ICD-10-PCS; 2018-03-18)
PROC: 0DB98ZX Excision of Duodenum, Via Natural or Artificial Opening Endoscopic, Diagnostic (ICD-10-PCS; 2018-03-18)
PROC: 0HBT3ZX Excision of Right Breast, Percutaneous Approach, Diagnostic (ICD-10-PCS; 2018-03-22)
DX: K26.4 Chronic or unspecified duodenal ulcer with hemorrhage (principal); N39.0 Urinary tract infection, site not specified; E44.0 Moderate protein-calorie malnutrition; D62 Acute posthemorrhagic anemia; J90 Pleural effusion, not elsewhere classified; N17.9 Acute kidney failure, unspecified; J98.11 Atelectasis; I48.91 Unspecified atrial fibrillation; E87.6 Hypokalemia; F03.90 Unspecified dementia, unspecified severity, without behavioral disturbance, psychotic disturbance, mood disturbance, and anxiety; D72.829 Elevated white blood cell count, unspecified; K64.8 Other hemorrhoids; K57.90 Diverticulosis of intestine, part unspecified, without perforation or abscess without bleeding; B96.20 Unspecified Escherichia coli [E. coli] as the cause of diseases classified elsewhere; E20.9 Hypoparathyroidism, unspecified; I49.5 Sick sinus syndrome; Z79.01 Long term (current) use of anticoagulants; D64.9 Anemia, unspecified; E61.1 Iron deficiency; K29.70 Gastritis, unspecified, without bleeding; K29.80 Duodenitis without bleeding; R55 Syncope and collapse; M81.0 Age-related osteoporosis without current pathological fracture; R60.1 Generalized edema; N63.10 Unspecified lump in the right breast, unspecified quadrant; I51.7 Cardiomegaly; K56.41 Fecal impaction; N64.59 Other signs and symptoms in breast; K44.9 Diaphragmatic hernia without obstruction or gangrene; Z90.49 Acquired absence of other specified parts of digestive tract; K22.8 Other specified diseases of esophagus
CPT/HCPCS: 36415; 36569; 71045-TC; 71260-TC; 76882; 76942-TC; 80048-TC; 80053-TC; 80061-TC; 80076-TC; 81000-TC; 82272-TC; 82728-TC; 83540-TC; 83735-TC; 84100-TC; 84484-TC; 85025-TC; 85027-TC; 85730-TC; 86850-TC; 86921-TC; 87081-TC; 87086-TC; 87186-TC; 88305-TC; 88313-TC; 88342; 93307-TC; 93971-TC; 97110-TC; 97112-TC; 97530-TC; A4216; A4606; A6402; C9113; G0378; J0744; J2704; J2916; J3475; J3480; J3490; J7030; J7050; J7070; P9016-BL; Q9967; Z7610